=== PATIENT | female | born 1975 | race Two or more races ===

== ENCOUNTER 2021-06-02 07:45 | Inpatient (IN) | payer OTHER ==
[~2021-06-02] VITALS: Ht 167.6 cm; Wt 99.3 kg
[2021-06-02] MEDS ORDERED: HYDROCHLOROTHIA25 MG PO (10:25)
[2021-06-02] MEDS ORDERED: COZAAR50 MG PO (10:25)
[2021-06-02] MEDS ORDERED: PEPCID AC20 MG PO (10:26)
[2021-06-02] MEDS ORDERED: NORVASC10 MG PO (14:15)
[2021-06-09] MEDS ORDERED: LANSOPRAZOLE30 MG (10:55)
[2021-06-09] MEDS ORDERED: METFORMIN HCL500 M4 (10:55)
[2021-06-09] MEDS ORDERED: OPTIMAL D31250 MCG (10:55)
[2021-06-09] MEDS ORDERED: MILI 0.25-0.031 EACH (10:55)
[2021-06-09] MEDS ORDERED: MEGESTROL ACETA40 MG (10:55)
[2021-06-12] MEDS ORDERED: IBU800 MG PO (10:38)
[2021-06-12] MEDS ORDERED: SURFAK240 M1 PO (10:39)
[2021-06-12] MEDS ORDERED: SIMETHICONE80 MG PO (10:41)
== END 2021-06-12 11:11 | disposition home or self-care (01) | DRG 743 ==
LOC: OB/GYN 06-09 07:45 → O/R 06-09 10:38 → OB/GYN 06-09 18:08
PROVIDERS: ADMIT Student in an Organized Health Care Education/Training Program; ATTEND Student in an Organized Health Care Education/Training Program
PROC: 0UT70ZZ Resection of Bilateral Fallopian Tubes, Open Approach (ICD-10-PCS; 2021-06-09)
PROC: 0UT20ZZ Resection of Bilateral Ovaries, Open Approach (ICD-10-PCS; 2021-06-09)
PROC: 0UT90ZZ Resection of Uterus, Open Approach (ICD-10-PCS; principal; 2021-06-09 12:25)
DX: D25.1 Intramural leiomyoma of uterus (principal); D25.2 Subserosal leiomyoma of uterus; D25.0 Submucous leiomyoma of uterus; N84.0 Polyp of corpus uteri; N84.1 Polyp of cervix uteri; Z20.822 Contact with and (suspected) exposure to COVID-19